=== PATIENT | female | born 1980 | race Caucasian/White ===

== ENCOUNTER 2017-02-12 04:40 | Emergency (ER) | payer OTHER ==
[~2017-02-12] VITALS: Ht 154.9 cm; Wt 96.5 kg
[~2017-02-12 04:40] MED LIST: ALBU1AER9 INH; CLIN150C PO; CTP/1 PO; EFF/375 PO; HYDR25TA4 PO; LEVO25TA PO; LURA1TAB2 PO
[2017-02-12 04:43] VITALS: TEMP 36.7; Ht 154.9 cm; Wt 96.5 kg
[2017-02-12 04:51] VITALS: O2SAT 97
[2017-02-12] MEDS ORDERED: ACETAMINOPHEN 500 MG TAB PO STA (05:01)
[2017-02-12 05:02] LABS: BASO % 0.3 %; BASO ABS # 0.03 K/uL (0-0.2); COMPLETE YES; EOS % 1.4 %; HEMATOCRIT 39.7 % (37-47); IG% 0.2 %; LYMPH % 32.8 %; LYMPH ABS # 3.03 K/uL (1.2-3.4); MEAN CELL VOLUME 93.2 fL (80-100); MEAN CORPUSCULAR HEMOGLOBIN 31.7 pg (25-34); MEAN PLATELET VOLUME 10.3 fL (7.4-10.4); MONO % 8.1 %; NEUT % 57.2 %; PLATELET COUNT 250 K/uL (130-400); RED BLOOD COUNT 4.26 M/uL (4.2-5.4); WHITE BLOOD COUNT 9.25 K/uL (4.8-10.8)
--- NOTE | 2017-02-12 05:07 | EMERGENCY ROOM VISIT NOTE ---
History Report prepared by Solomon: Bakari Zamora Under the Supervision of: Dr. Nina Cabrales D.O. First contact with patient: 04:43 Chief Complaint: CHEST PAIN Stated Complaint: CHEST PAIN History of Present Illness The patient is a 36 year old female who presents to the Emergency Room via ambulance with complaints of on and off and worsening chest pain for the past week which comes for around 15-20 minutes at a time. She currently rates her discomfort as a 9/10 in severity. The patient states that she was sleeping tonight, and she woke up with coughing and chest pain. The patient states that she was on antibiotics for bronchitis for the past week or so, and her cough did not get any better, and now she is currently on another antibiotic for her tooth. She states that the pain radiates into her arm, and she currently has a headache. The patient states that she has a history of hypertension and seizures , and she has a family history of diabetes and hypertension. She additionally noted that she smokes. Source of History: patient Onset: past week Position: chest Symptom Intensity: 9/10 Timing: other (on and off) Associated Symptoms: + headache, + cough Note: Associated symptoms: Arm pain Review of Systems See HPI for pertinent positives & negatives. A total of 10 systems reviewed and were otherwise negative. Past Medical & Surgical Medical Problems: (1) Abnormal Pap smear of cervix (2) Altered mental status (3) Anxiety (4) Asthma (5) Bipolar disorder (6) Depression (7) Heroin abuse (8) HTN (hypertension) (9) Hypothyroidism (10) Metabolic syndrome X (11) MTHFR mutation (12) pprom WITH PREVIOUS (13) Seizures Surgical Problems: (1) H/O: Social History Problems: (1) Tobacco use Family History Diabetes mellitus FH: cancer FHx: heart disease Hypertension Kidney disease Social History Smoking Status: Current Every Day Smoker Drug Use: heroin Marital Status: Housing Status: lives with friends, lives with significant other Occupation Status: unemployed Current/Historical Medications Scheduled Clindamycin Hcl (Cleocin), 300 MG PO QID Hydrochlorothiazide (Hctz), 25 MG PO DAILY Lacosamide (Vimpat), 100 MG PO BID Lisinopril (Prinivil), 20 MG PO DAILY Oxcarbazepine (Trileptal), 600 MG PO BID Sertraline HCl (Sertraline HCl), 50 MG PO DAILY Scheduled PRN Albuterol Hfa (Ventolin Hfa), 2 PUFFS INH Q6H PRN for SOB/Wheezing Ibuprofen Tab (Motrin), 800 MG PO Q6 PRN for Pain Allergies Coded Allergies: Amoxicillin (Verified Allergy, Intermediate, N/V, 02/12/17) Tramadol (Verified Allergy, Intermediate, nausea, 02/12/17) Milk (Verified Allergy, Unknown, unk, 02/12/17) intolerance Physical Exam Vital Signs Date Time Temp Pulse Resp B/P (MAP) Pulse Ox O2 Delivery O2 Flow Rate FiO2 02/12/17 05:56 83 15 121/74 98 02/12/17 04:51 97 Room Air 02/12/17 04:51 80 02/12/17 04:45 Room Air 02/12/17 04:43 36.7 78 18 107/56 97 Room Air Physical Exam HEENT: Head - normocephalic and atraumatic Pupils are equal, round, and reactive to light. Extraocular eye muscles are intact, and sclera are anicteric. Nose - moist nasal mucosa without discharge. Mouth - moist buccal mucosa. Oropharynx is nonerythematous and there is no tonsillar exudate or edema noted. Neck: Supple; no JVD, nuchal rigidity, cervical lymphadenopathy, or auscultated bruits. Heart: Regular rate and rhythm. There is a normal S1 and S2 with no murmurs, clicks. Lungs: Clear to auscultation bilaterally with no wheezes, rales, or rhonchi. Chest: Reproducible discomfort with palpation to the anterior left chest wall. Abdomen: Soft, completely nontender, nondistended, with good bowel sounds. There are no palpable pulsatile masses or hepatosplenomegaly. There is no guarding, rigidity, or rebound noted. Extremities: No evidence of cyanosis, clubbing, or edema. There are easily palpable peripheral pulses. Skin: warm and dry with good turgor and no rashes. Medical Decision & Procedures ER Provider Diagnostic Interpretation: X-ray results as stated below per interpretation by me: Chest: No pulmonary infiltrate or consolidation. No pneumothorax. Laboratory Results 02/12/17 04:18 Red Blood Count 4.26, Mean Corpuscular Volume 93.2, Mean Corpuscular Hemoglobin 31.7, Mean Corpuscular Hemoglobin Concent 34.0, Mean Platelet Volume 10.3, Neutrophils (%) (Auto) 57.2, Lymphocytes (%) (Auto) 32.8, Monocytes (%) (Auto) 8.1, Eosinophils (%) (Auto) 1.4, Basophils (%) (Auto) 0.3, Neutrophils # (Auto) 5.29, Lymphocytes # (Auto) 3.03, Monocytes # (Auto) 0.75, Eosinophils # (Auto) 0.13, Basophils # (Auto) 0.03 02/12/17 04:18 Test 02/12/17 04:18 White Blood Count 9.25 K/uL (4.8-10.8) Red Blood Count 4.26 M/uL (4.2-5.4) Hemoglobin 13.5 g/dL (12.0-16.0) Hematocrit 39.7 % (37-47) Mean Corpuscular Volume 93.2 fL (80-100) Mean Corpuscular Hemoglobin 31.7 pg (25-34) Mean Corpuscular Hemoglobin Concent 34.0 g/dl (32-36) Platelet Count 250 K/uL (130-400) Mean Platelet Volume 10.3 fL (7.4-10.4) Neutrophils (%) (Auto) 57.2 % Lymphocytes (%) (Auto) 32.8 % Monocytes (%) (Auto) 8.1 % Eosinophils (%) (Auto) 1.4 % Basophils (%) (Auto) 0.3 % Neutrophils # (Auto) 5.29 K/uL (1.4-6.5) Lymphocytes # (Auto) 3.03 K/uL (1.2-3.4) Monocytes # (Auto) 0.75 K/uL (0.11-0.59) Eosinophils # (Auto) 0.13 K/uL (0-0.5) Basophils # (Auto) 0.03 K/uL (0-0.2) RDW Standard Deviation 46.7 fL (36.4-46.3) RDW Coefficient of Variation 13.8 % (11.5-14.5) Immature Granulocyte % (Auto) 0.2 % Immature Granulocyte # (Auto) 0.02 K/uL (0.00-0.02) Anion Gap 6.0 mmol/L (3-11) Est Creatinine Clear Calc Drug Dose 122.7 ml/min Estimated GFR () 129.9 Estimated GFR (Non- 112.1 BUN/Creatinine Ratio 19.6 (10-20) Calcium Level 7.6 mg/dl (8.5-10.1) Total Bilirubin 0.2 mg/dl (0.2-1) Aspartate Amino Transf (AST/SGOT) 15 U/L (15-37) Alanine Aminotransferase (ALT/SGPT) 26 U/L (12-78) Alkaline Phosphatase 88 U/L (45-117) Troponin I 0.019 ng/ml (0-0.045) Total Protein 7.3 gm/dl (6.4-8.2) Albumin 3.8 gm/dl (3.4-5.0) Globulin 3.5 gm/dl (2.5-4.0) Albumin/Globulin Ratio 1.1 (0.9-2) Laboratory results per my review. Medications Administered Medications (Trade) Dose Ordered Sig/[place] Route Start Time Stop Time Status Last Admin Dose Admin Acetaminophen (Tylenol Tab) 1,000 mg NOW STAT PO 02/12/17 05:01 02/12/17 05:02 DC 02/12/17 05:20 1,000 MG Procedure Medications: Tylenol Tab PO ECG Indication: chest pain Rate (beats per minute): 67 Rhythm: normal sinus Findings: T-wave inversion (in lead 3), no acute ischemic change, no ectopy, other (No reciprocal changes) ED Course 0443: Past medical records reviewed. The patient was evaluated in room B12. A complete history and physical exam was performed. Report was taken from the paramedics. They administered aspirin and nitroglycerin. This made no change to the patient's chest discomfort but did give her a headache.. She had a twelve-lead EKG and chest x-ray as described above. 0501: Tylenol Tab 1000mg PO 0541: I reevaluated the patient. Her headache was gone, and there was no recurrence of her chest pain. She additionally confirms that she has an appointment with her PCP on 02/16. The patient is ready for discharge. Medical Decision The patient is a 36 year old female who presents to the ED with chest pain. Differential diagnosis includes cardiac ischemia, costochondritis, pleurisy, GERD, pneumonia, and bronchitis. I attest that I have personally reviewed the patient's current medication list. Patient was found to have normal blood pressure on screening and does not require follow-up. Lab results: White blood cell count normal, stable H&H, troponin 0.019, glucose 99, normal renal function and LFTs The patient has no family history of heart disease. She has a normal-appearing EKG and negative troponin. I do not suspect cardiac chest pain. The patient's pain was reproducible in the left anterior chest wall. Chest x-ray revealed no evidence of pulmonary infiltrate or pneumonia. O2 saturations remain stable. The patient is scheduled to see her PCP on February 16. If encouraged her to keep that appointment. If symptoms worsen, she should return to the ER. Impression Primary Impression: Chest wall pain Additional Impression: Bronchitis Scribe Attestation The scribe's documentation has been prepared under my direction and personally reviewed by me in its entirety. I confirm that the note above accurately reflects all work, treatment, procedures, and medical decision making performed by me. Departure Information Dispostion Home / Self-Care Referrals No Doctor, Assigned (PCP) Forms HOME CARE DOCUMENTATION FORM, IMPORTANT VISIT INFORMATION Patient Instructions Bronchitis Acute, Chest Pain - [facility], [place], [facility] [place] Additional Instructions Rest. Limit strenuous activity. To limit episodes of bronchitis, STOP SMOKING Return to the ER if you develop any shortness of breath or recurrent chest pain that won't subside. Follow up with PCP on February 16 at your appt. You may use tylenol or motrin for pain Problem Qualifiers
[2017-02-12] MEDS ORDERED: VNTHFA/IN INH (05:25)
[2017-02-12] MEDS ORDERED: LACO100T PO (05:25)
[2017-02-12] MEDS ORDERED: OXCA600T2 PO (05:25)
[2017-02-12] MEDS ORDERED: ZLF50 PO (05:25)
[2017-02-12] MEDS ORDERED: IBUP-1451 PO (05:25)
[2017-02-12] MEDS ORDERED: LISI20TA3 PO (05:25)
[2017-02-12 05:27] LABS: ALB/GLOB RATIO 1.1 (0.9-2); BUN/CREATININE RATIO 19.6 (10-20); CALCIUM 7.6 mg/dl (8.5-10.1); CREATININE 0.66 mg/dl (0.60-1.20)
[2017-02-12 05:31] LABS: POTASSIUM 4.2 mmol/L (3.5-5.1)
[2017-02-12 05:56] VITALS: BP 121/74; PULSE 83; O2SAT 98
--- NOTE | 2017-02-12 06:31 | DIAGNOSTIC IMAGING REPORT ---
CHEST 2 VIEWS ROUTINE CLINICAL HISTORY: cough/ cp dyspnea COMPARISON STUDY: 11/08/2015 FINDINGS: The bones soft tissues and hemidiaphragms are normal. The cardiomediastinal silhouette is normal. The lungs are clear. The pulmonary vasculature is normal. IMPRESSION: Negative chest. Electronically signed by: Sea Glover M.D. 02/12/2017 6:30 AM Dictated Date/Time: 02/12/2017 6:30 AM
== END 2017-02-12 05:57 | disposition home or self-care (01) ==
LOC: EDBD 04:40 → C.EDB 04:40
DX: R07.89 Other chest pain (principal); J40 Bronchitis, not specified as acute or chronic; R41.82 Altered mental status, unspecified; F41.9 Anxiety disorder, unspecified; F31.9 Bipolar disorder, unspecified; F33.41 Major depressive disorder, recurrent, in partial remission; I10 Essential (primary) hypertension; F16.90 Hallucinogen use, unspecified, uncomplicated; E03.9 Hypothyroidism, unspecified; E88.81 Metabolic syndrome and other insulin resistance; E72.12 Methylenetetrahydrofolate reductase deficiency; R56.9 Unspecified convulsions; Z83.3 Family history of diabetes mellitus; Z82.49 Family history of ischemic heart disease and other diseases of the circulatory system; F17.200 Nicotine dependence, unspecified, uncomplicated